=== PATIENT | female | born 1945 | race Caucasian/White ===

== ENCOUNTER 2024-10-16 08:24 | Outpatient (CLI) | payer MEDICARE | END 2024-10-16 08:25 | disposition home or self-care (01) | LOC: NM 08:24 | PROVIDERS: ATTEND Psychiatry & Neurology Neurology | DX: R25.1 Tremor, unspecified (principal); R29.818 Other symptoms and signs involving the nervous system; G31.9 Degenerative disease of nervous system, unspecified | CPT/HCPCS: 78803; A9584 ×2 ==